=== PATIENT | male | born 1995 | race Caucasian/White ===

== ENCOUNTER 2019-12-12 20:32 | Emergency (ER) | payer OTHER, SELFPAY ==
[2019-12-12 20:37] VITALS: BP 166/97; PULSE 86; RESP 16; TEMP 36.7; O2SAT 100
--- NOTE | 2019-12-12 21:11 | ED.ABDPAIN ---
HPI - Abdominal Pain General Chief Complaint: Animal Bite <Edward Solomon PA-C - Last Filed: 12/12/19 21:14> Stated Complaint: dog bite <Edward Solomon PA-C - Last Filed: 12/12/19 21:14> Time Seen by Provider: 12/12/19 20:48 <Edward Solomon PA-C - Last Filed: 12/12/19 21:14> Source: patient <Edward Solomon PA-C - Last Filed: 12/12/19 21:14> Mode of arrival: ambulatory <Edward Solomon PA-C - Last Filed: 12/12/19 21:14> Limitations: no limitations <Edward Solomon PA-C - Last Filed: 12/12/19 21:14> History of Present Illness HPI narrative: Patient is a 24-year-old male who presents with dog bite to the right arm 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 Patient notes he has his immunizations up-to-date. Patient has single puncture wound to the proximal forearm. Patient denies any decreased range of motion or any loss of feeling or function in the extremity. Patient has not taken anything for his symptoms and presents immediately after the accident occurred <Edward Solomon PA-C - Last Filed: 12/12/19 21:14> Related Data Allergies/Adverse Reactions: Allergies Allergy/AdvReac Type Severity Reaction Status Date / Time ibuprofen Allergy Swelling Verified 12/12/19 20:39 <Edward Solomon PA-C - Last Filed: 12/12/19 21:14> Review of Systems Review of Systems: All systems reviewed & are unremarkable except as noted in HPI and below <Edward Solomon PA-C - Last Filed: 12/12/19 21:14> PMFSH Social History Social History: Social History (Updated 12/12/19 @ 21:12 by Edward Solomon PA-C) Smoking status: Never smoker <Edward Solomon PA-C - Last Filed: 12/12/19 21:14> Exam Narrative: Exam Narrative: GENERAL: Well-appearing, well-nourished, and in no acute distress. HEAD: Normocephalic, atraumatic. EYES: PERRLA and EOMI. ENT: Nares clear, no rhinorrhea or epistaxis. Mucous membranes moist. EXTREMITIES: Normal range of motion. No edema. Single puncture wound to the proximal right forearm SKIN: Warm, dry, no rash. NEURO: No focal deficits. Alert and oriented x3. Neurovascularly intact PSYCH: Normal mood and affect. <Ewdard Solomon PA-C - Last Filed: 12/12/19 21:14> Course Course Emergency Course: Patient in the room in no distress aware of case findings treatment plan diagnosis <Edward Solomon PA-C - Last Filed: 12/12/19 21:14> Vital Signs Vital signs: Vital Signs Temperature 98.1 F 12/12/19 20:37 Pulse Rate 86 12/12/19 20:37 Respiratory Rate 16 12/12/19 20:37 Blood Pressure 166/97 H 12/12/19 20:37 Pulse Oximetry 100 12/12/19 20:37 Temperature 98.1 F 12/12/19 20:37 Pulse Rate 80 12/12/19 21:32 Respiratory Rate 20 12/12/19 21:32 Blood Pressure 166/97 H 12/12/19 20:37 Pulse Oximetry 100 12/12/19 21:32 <Edward Solomon PA-C - Last Filed: 12/12/19 21:14> Vital Signs Temperature 98.1 F 12/12/19 20:37 Pulse Rate 86 12/12/19 20:37 Respiratory Rate 16 12/12/19 20:37 Blood Pressure 166/97 H 12/12/19 20:37 Pulse Oximetry 100 12/12/19 20:37 Temperature 98.1 F 12/12/19 20:37 Pulse Rate 80 12/12/19 21:32 Respiratory Rate 20 12/12/19 21:32 Blood Pressure 166/97 H 12/12/19 20:37 Pulse Oximetry 100 12/12/19 21:32 <Susanne Dawson MD - Last Filed: 12/13/19 02:51> MDM - Abdominal Pain MDM Narrative Medical decision making narrative: Patients injury or pain is consistent with musculoskeletal etiology. No signs of neurological or vascular compromise on exam. Compartments and tisues are soft without signs of compartment syndrome. Pain is felt appropriate for further evaluation on an outpatient basis. <ORIANA Schilling Last Filed: 12/12/19 21:14> Discharge Plan Discharge Clinical Impression: Bite by animal, Puncture wound <Edward Solomon PA-C - Last Filed: 12/11/
[2019-12-12 21:32] VITALS: PULSE 80; RESP 20; O2SAT 100
== END 2019-12-12 21:33 | disposition home or self-care (01) ==
PROVIDERS: Emergency Provider General Practice
DX: S51.851A Open bite of right forearm, initial encounter (principal); W54.0XXA Bitten by dog, initial encounter
CPT/HCPCS: 99282